=== PATIENT | female | born 1950 | race African-American/Black ===

== ENCOUNTER 2016-10-06 16:19 | Inpatient (IN) | payer MEDICARE, OTHER ==
[~2016-10-06] VITALS: Ht 170.2 cm; Wt 77.7 kg
[~2016-10-06 16:19] MED LIST: ADVAIR 250-501 EACH IH; ALBUTEROL SULF8.5 GM INH; ALBUTEROL2.5 MG/0.5 IH; SPIRIVA INHALE1 PUFF INH; VICODIN ES 7.51 EACH PO; VICODIN1 TAB PO
--- NOTE | 2016-10-06 16:22 | Emergency Room Report ---
History of Present Illness General Source: Patient, EMS Present Illness HPI Patient is a 66-year-old female who presented after increased difficulty breathing. Patient had gradual onset of symptoms over the past half hour. Patient prior history of asthma. Patient been taking her inhalers. Patient was given breathing treatment by EMS. History is limited by patient's acuity and severe shortness of breath. She denies medication allergies. Allergies: Coded Allergies: No Known Allergies (Unverified , 03/01/12) Patient History Past Medical History: asthma Reviewed Nursing Documentation: PMH: Agreed, PSxH: Agreed Review of Systems All Other Systems: limited - by acuity Physical Exam Sp02 EP Interpretation: reviewed, normal General Appearance: normal inspection, alert, severe distress, obese Head: atraumatic ENT: normal ENT inspection, hearing grossly normal, normal voice Neck: normal inspection, full range of motion, supple, no bony tend Respiratory: normal inspection, no respiratory distress, no retraction, respiratory distress, accessory muscle use, wheezing Cardiovascular #1: regular rate, rhythm, no edema Gastrointestinal: normal inspection, normal bowel sounds, non tender, soft, no guarding, no hernia Genitourinary: no CVA tenderness Musculoskeletal: normal inspection, back normal, normal range of motion Neurologic: normal inspection, alert, oriented x3, responsive, elementary librarian III-XII nml as tested, speech normal Psychiatric: normal inspection, judgement/insight normal, mood/affect normal Skin: no rash Medical Decision Making Diagnostic Impression: Primary Impression: COPD exacerbation ER Course Patient presented for shortness of breath.Differential included but was not limited to anemia, pneumonia, pneumothorax, myocardial infarction, pericardial effusion, congestive heart failure, acidosis. Because of complexity of patient' s case laboratory testing and imaging studies were ordered. EKG interpreted by me showed sinus tachycardia with a rate of [address] or T wave changes. Chest x-ray one view interpreted by me showed hyperinflation with normal cardiac size with no lung infiltrate. There is no effusions noted. The patient was initially started on BiPAP or severe difficulty breathing. She subsequently had some improvement in respiratory symptoms and was able to be placed on only supplemental oxygen. Patient was discussed with Dr. ng for inpatient management Labs Test 10/06/16 17:45 White Blood Count 9.5 K/UL (4.8-10.8) Red Blood Count 4.36 M/UL (4.20-5.40) Hemoglobin 11.4 G/DL (12.0-16.0) Hematocrit 35.4 % (37.0-47.0) Mean Corpuscular Volume 81 FL (80-99) Mean Corpuscular Hemoglobin 26.1 PG (27.0-31.0) Mean Corpuscular Hemoglobin Concent 32.1 G/DL (32.0-36.0) Red Cell Distribution Width 17.3 % (11.6-14.8) Platelet Count 200 K/UL (150-450) Mean Platelet Volume 8.1 FL (6.5-10.1) Neutrophils (%) (Auto) % (45.0-75.0) Lymphocytes (%) (Auto) % (20.0-45.0) Monocytes (%) (Auto) % (1.0-10.0) Eosinophils (%) (Auto) % (0.0-3.0) Basophils (%) (Auto) % (0.0-2.0) Prothrombin Time 10.3 SEC (9.30-11.50) Prothromb Time International Ratio 1.0 (0.9-1.1) Activated Partial Thromboplast Time 24 SEC (23-33) Chest X-Ray Diagnostic Results EP Interpretation: Yes Findings: no consolidation, no effusion, no pneumothorax, no acute cardiopulmonary disease Number of Views: 1 Status: unchanged Disposition: ADMITTED INPATIENT Condition: Landy JlRocco October 06, 2016 16:22
[2016-10-06] MEDS ORDERED: MELOXICAM15 MG PO (16:30)
[2016-10-06] MEDS ORDERED: VENTOLIN HFA18 GM INH (16:30)
[2016-10-06] MEDS ORDERED: PREDNISONE10 M2 PO (16:30)
[2016-10-06] MEDS ORDERED: SOMA350 MG PO (16:30)
[2016-10-06] MEDS ORDERED: LISINOPRIL20 MG ORAL (16:30)
[2016-10-06] MEDS ORDERED: AMBIEN10 M1 ORAL (16:30)
[2016-10-06] MEDS ORDERED: COMBIVENT RESPIM4 GM IH (16:30)
[2016-10-06] MEDS ORDERED: ASPIR 8181 MG ORAL (16:30)
[2016-10-06] MEDS ORDERED: CHLORTHALIDONE25 MG ORAL (16:30)
[2016-10-06] MEDS ORDERED: FUROSEMIDE20 M1 ORAL (16:30)
[2016-10-06 16:41] VITALS: BP 156/97
[2016-10-06] MEDS ORDERED: Solu-MEDROL 125mg Inj IVP ONE (16:45)
[2016-10-06] MEDS ORDERED: Albuterol ud Inhalation HHN ONE (18:00)
[2016-10-06 18:23] LABS: PROTHROMBIN TIME 10.3 SEC (9.30-11.50)
[2016-10-06 18:24] LABS: MEAN CORPUSCULAR HEMOGLOBIN 26.1 PG (27.0-31.0); MEAN CORPUSCULAR HGB CONC 32.1 G/DL (32.0-36.0); MEAN CORPUSCULAR VOLUME 81 FL (80-99); MEAN PLATELET VOLUME 8.1 FL (6.5-10.1); PLATELET COUNT 200 K/UL (150-450); RED BLOOD COUNT 4.36 M/UL (4.20-5.40); RED CELL DISTRIBUTION WIDTH 17.3 % (11.6-14.8); WHITE BLOOD COUNT 9.5 K/UL (4.8-10.8)
[2016-10-06 18:36] LABS: TROPONIN I < 0.30 ng/mL (<=0.30)
[2016-10-06 18:40] LABS: ALANINE AMINOTRANSFERASE 15 U/L (3-33); ALBUMIN/GLOBULIN RATIO 1.1 (1.0-2.7); ANION GAP 13 (5-15); ASPARTATE AMINO TRANSFERASE 20 U/L (5-40); CALCIUM 8.8 mg/dL (8.6-10.2); CARBON DIOXIDE 28 mEQ/L (20-30); CHLORIDE 102 mEQ/L (98-107); CREATININE 0.8 mg/dL (0.5-0.9); GLOMERULAR FILTRATION RATE > 60 mL/min (>60); HEMOLYSIS 15; POTASSIUM 3.9 mEQ/L (3.4-4.9); SODIUM 143 mEQ/L (135-145); TOTAL PROTEIN 6.4 g/dL (6.6-8.7)
[2016-10-06 18:41] LABS: REFLEX LACTIC ACID YES OR NO YES
[2016-10-06 18:45] LABS: ANISOCYTOSIS 1+; BAND NEUTROPHILS % (MANUAL) 3 % (0-8); BASOPHILS % (MANUAL) 0 % (0-2); EOSINOPHILS % (MANUAL) 0 % (0-3); HYPOCHROMASIA 1+; LYMPHOCYTES % (MANUAL) 7 % (20-45); NEUTROPHILS % (MANUAL) 86 % (45-75); PLATELET ESTIMATE ADEQUATE; PLATELET MORPHOLOGY NORMAL; TOTAL CELLS COUNTED 100
[2016-10-06 18:51] LABS: CKMB 2.3 ng/mL (< 3.8)
[2016-10-06 19:15] VITALS: BP 149/98
[2016-10-06 20:00] VITALS: BP 157/98
[2016-10-06] MEDS ORDERED: LORazepam Inj 2mg/ml 1ml IV PRN (20:30)
[2016-10-06] MEDS ORDERED: Ketorolac 30mg Inj IV PRN (20:30)
[2016-10-06] MEDS ORDERED: Promethazine/Codeine 5ml UD ORAL PRN (20:30)
[2016-10-06] MEDS ORDERED: Nitroglycerin Subl 0.4mg tab (Bottle Of 25) SL PRN (20:30)
[2016-10-06] MEDS: DuoNeb 0.5-3(2.5)mg/3ml neb HHN PRN (21:32)
[2016-10-06] MEDS: Theophylline ER 100mg ORAL SCH (21:44)
[2016-10-06] MEDS: Heparin 5000 units/ml inj SUBQ SCH (21:46)
[2016-10-06] MEDS: Morphine Sulfate 2mg/ml Inj IVP PRN (21:47)
[2016-10-06] MEDS ORDERED: Piperacillin/Tazobactam 2.25 GM in D5W 55 ML IV SCH (22:00)
[2016-10-06] MEDS: Zoysn 3.37gm in D5W 110ml IVPB SCH (23:18)
[2016-10-06] MEDS: Solu-MEDROL 125mg Inj IV SCH (23:18)
[2016-10-06 23:46] VITALS: BP 138/89
[2016-10-07] MEDS: Morphine Sulfate 2mg/ml Inj IVP PRN ×5 (02:58→18:30)
[2016-10-07 03:51] VITALS: BP 146/99
[2016-10-07] MEDS: Solu-MEDROL 125mg Inj IV SCH ×3 (05:56→18:00)
[2016-10-07] MEDS: Zoysn 3.37gm in D5W 110ml IVPB SCH ×2 (05:56→14:28)
[2016-10-07] MEDS ORDERED: Miralax 17gm pkt ORAL PRN (07:45)
[2016-10-07 08:52] VITALS: BP 148/98
[2016-10-07] MEDS: Theophylline ER 100mg ORAL SCH ×2 (09:11→22:02)
[2016-10-07] MEDS: Heparin 5000 units/ml inj SUBQ SCH ×2 (09:14→22:02)
[2016-10-07] MEDS: DuoNeb 0.5-3(2.5)mg/3ml neb HHN PRN ×3 (09:59→23:48)
--- NOTE | 2016-10-07 11:04 | History and Physical ---
History of Present Illness General Date patient seen: October 07, 2016 Reason for Hospitalization: Asthma Present Illness HPI 66-year-old female who presented to [facility] ER with CC of increased difficulty breathing. Patient had gradual onset of symptoms over the past half hour. Patient prior history of asthma. Patient been taking her inhalers. Pt is admitted to telemetry for tachycardia and acute respiratory failure. Allergies: Coded Allergies: No Known Allergies (Unverified , 03/01/12) Medication History Scheduled Acetaminophen/Hydrocodone (Vicodin), 1-2 TAB PO PRN, (Reported) Albuterol Sulfate (Albuterol Sulfate), 2.5 MG IH PRN, (Reported) Albuterol Sulfate (Ventolin Hfa), 1 PUFF INH EVERY 6 HOURS, (Reported) Albuterol Sulfate* (Albuterol Sulfate Mdi*), 2 PUFF INH Q6H, (Reported) Aspirin* (Aspir 81*), 81 MG ORAL DAILY, (Reported) Chlorthalidone* (Chlorthalidone*), 25 MG ORAL DAILY, (Reported) Fluticasone/Salmeterol (Advair 250-50 Diskus), 1 EACH IH BID, (Reported) Furosemide* (Lasix*), 20 MG ORAL DAILY, (Reported) Hydrocodone/Acetaminophen 7.5-750 (Vicodin Es 7.5-750), 1 TAB PO Q8H, (Reported) Lisinopril (Lisinopril*), 20 MG ORAL DAILY, (Reported) Meloxicam* (Meloxicam*), 15 MG PO DAILY, (Reported) Tiotropium (Spiriva Inhaler), 1 PUFF INH DAILY, (Reported) Scheduled PRN Carisoprodol* (Soma*), 350 MG PO DAILY PRN for For Pain, (Reported) Zolpidem Tartrate* (Ambien*), 10 MG ORAL HS PRN for Insomnia, (Reported) Miscellaneous Medications Ipratropium/Albuterol Sulfate (Combivent Respimat Inhal [place]), 4 GM IH, ( Reported) Prednisone (Prednisone), 20 MG PO, (Reported) Patient History Healthcare decision maker Resuscitation status Full Code Advanced Directive on File No Past Medical/Surgical History Past Medical/Surgical History: (1) History of asthma Review of Systems All Other Systems: negative except mentioned in HPI Physical Exam General Appearance: morbidly obese Lines, tubes and drains: peripheral HEENT: normocephalic, atraumatic Neck: non-tender, normal alignment, supple Respiratory/Chest: chest wall non-tender, lungs clear Breasts: no masses Cardiovascular/Chest: normal peripheral pulses Abdomen: normal bowel sounds Genitourinary/Rectal: normal genital exam Extremities: normal range of motion Skin Exam: normal pigmentation Neurologic: sanitarian inspector II-XII grossly normal Last 24 Hour Vital Signs Date Time Temp Pulse Resp B/P Pulse Ox O2 Delivery O2 Flow Rate FiO2 10/07/16 10:08 105 20 98 Nasal Cannula 3.0 32 10/07/16 09:55 99 20 97 Nasal Cannula 3.0 32 10/07/16 09:35 85 10/07/16 08:52 97.0 99 22 148/98 98 Nasal Cannula 3.0 10/07/16 07:41 Nasal Cannula 3.0 32 10/07/16 07:40 98 Nasal Cannula 3.0 32 10/07/16 04:00 92 10/07/16 03:51 98.3 94 18 146/99 98 Nasal Cannula 3.0 10/07/16 00:00 95 10/06/16 23:46 97.7 106 19 138/89 97 Nasal Cannula 3.0 10/06/16 21:42 103 20 98 Nasal Cannula 3.0 32 10/06/16 21:32 101 20 97 Nasal Cannula 3.0 32 10/06/16 20:00 104 10/06/16 20:00 97.5 101 22 157/98 96 Nasal Cannula 4.0 10/06/16 19:45 118 38 149/98 93 Nasal Cannula 6.0 32 10/06/16 19:15 118 38 149/98 93 Nasal Cannula 6.0 10/06/16 18:30 97 Nasal Cannula 3.0 32 10/06/16 18:30 Nasal Cannula 3.0 32 10/06/16 18:18 109 23 98 Nasal Cannula 3.0 32 10/06/16 18:08 109 22 Bi-pap 50 10/06/16 18:08 109 22 100 Bi-pap 50 10/06/16 16:47 115 18 100 Facial 50 10/06/16 16:43 50 10/06/16 16:41 136 28 Bi-pap 15.0 100 10/06/16 16:41 117 25 156/97 100 Bi-pap 10/06/16 16:16 136 28 161/112 99 T-piece 15.0 Intake and Output 10/06/16 10/07/16 19:00 07:00 Intake Total 110.0 ml Balance 110.0 ml IV Total 110.0 ml # Voids 1 4 Laboratory Tests Test 10/06/16 17:45 10/06/16 19:25 White Blood Count 9.5 K/UL (4.8-10.8) Red Blood Count 4.36 M/UL (4.20-5.40) Hemoglobin 11.4 G/DL (12.0-16.0) L Hematocrit 35.4 % (37.0-47.0) L Mean Corpuscular Volume 81 FL (80-99) Mean Corpuscular Hemoglobin 26.1 PG (27.0-31.0) L Mean Corpuscular Hemoglobin Concent 32.1 G/DL (32.0-36.0) Red Cell Distribution Width 17.3 % (11.6-14.8) H Platelet Count 200 K/UL (150-450) Mean Platelet Volume 8.1 FL (6.5-10.1) Neutrophils (%) (Auto) % (45.0-75.0) Lymphocytes (%) (Auto) % (20.0-45.0) Monocytes (%) (Auto) % (1.0-10.0) Eosinophils (%) (Auto) % (0.0-3.0) Basophils (%) (Auto) % (0.0-2.0) Differential Total Cells Counted 100 Neutrophils % (Manual) 86 % (45-75) H Lymphocytes % (Manual) 7 % (20-45) L Monocytes % (Manual) 4 % (1-10) Eosinophils % (Manual) 0 % (0-3) Basophils % (Manual) 0 % (0-2) Band Neutrophils 3 % (0-8) Platelet Estimate Adequate Platelet Morphology Normal Hypochromasia 1+ Anisocytosis 1+ Prothrombin Time 10.3 SEC (9.30-11.50) Prothromb Time International Ratio 1.0 (0.9-1.1) Activated Partial Thromboplast Time 24 SEC (23-33) Sodium Level 143 mEQ/L (135-145) Potassium Level 3.9 mEQ/L (3.4-4.9) Chloride Level 102 mEQ/L (98-107) Carbon Dioxide Level 28 mEQ/L (20-30) Anion Gap 13 (5-15) Blood Urea Nitrogen 11 mg/dL (7-23) Creatinine 0.8 mg/dL (0.5-0.9) Estimat Glomerular Filtration Rate > 60 mL/min (>60) Glucose Level 161 mg/dL (74-106) H Lactic Acid Level 2.10 mmol/L (0.66-2.22) 2.50 mmol/L (0.66-2.22) H Calcium Level 8.8 mg/dL (8.6-10.2) Total Bilirubin 0.3 mg/dL (0.0-1.2) Aspartate Amino Transf (AST/SGOT) 20 U/L (5-40) Alanine Aminotransferase (ALT/SGPT) 15 U/L (3-33) Alkaline Phosphatase 48 U/L (35-104) Total Creatine Kinase 113 U/L (26-140) Creatine Kinase MB 2.3 ng/mL (< 3.8) Creatine Kinase MB Relative Index 2.0 Troponin I < 0.30 ng/mL (<=0.30) Pro-B-Type Natriuretic Peptide 226 pg/mL (0-125) H Total Protein 6.4 g/dL (6.6-8.7) L Albumin 3.4 g/dL (3.5-5.2) L Globulin 3.0 g/dL Albumin/Globulin Ratio 1.1 (1.0-2.7) Microbiology Date/Time Source Procedure Growth Status 10/06/16 19:45 Nasal Nares Influenza Types A,B Antigen (GIRISH) - Final Complete Height (Feet): 5 Height (Inches): 7.00 Weight (Pounds): 236 Medications Current Medications Medications (Trade) Dose Ordered Sig/Myke Route PRN Reason Start Time Stop Time Status Last Admin Dose Admin Albuterol/ Ipratropium (DuoNeb 0.5-3(2.5)mg/3ml) 3 ml EVERY 4 HOURS PRN HHN dyspnea 10/06/16 20:30 10/11/16 20:29 10/07/16 09:59 Carisoprodol (Soma) 350 mg DAILY PRN ORAL For Pain 10/06/16 20:30 11/05/16 20:29 Chlorthalidone (Chlorthalidone) 25 mg DAILY ORAL 10/07/16 09:00 11/06/16 08:59 10/07/16 09:15 Dextrose STAT PRN IV Hypoglycemia 10/06/16 20:30 11/05/16 20:29 Furosemide (Lasix) 20 mg DAILY ORAL 10/07/16 09:00 11/06/16 08:59 10/07/16 09:08 Heparin Sodium (Porcine) (Heparin 5000 units/ml) 5,000 units EVERY 12 HOURS SUBQ 10/06/16 21:00 11/05/16 20:59 10/07/16 09:14 Ketorolac Tromethamine (Toradol 30mg) 30 mg EVERY 8 HOURS PRN IV moderate pain 4-6 10/06/16 20:30 10/11/16 20:29 Lorazepam (Ativan 2mg/ml 1ml) 0.5 mg Q4H PRN IV For Anxiety 10/06/16 20:30 10/13/16 20:29 Methylprednisolone Sodium Succinate (Solu-MEDROL) 60 mg EVERY 6 HOURS IV 10/07/16 00:00 11/06/16 00:00 10/07/16 05:56 Morphine Sulfate (Morphine Sulfate) 2 mg EVERY 4 HOURS PRN IVP severe pain 7-10 10/06/16 20:30 10/13/16 20:29 10/07/16 09:22 Nitroglycerin (Ntg) 0.4 mg Q5M X 3 DOSES PRN SL Prn Chest Pain 10/06/16 20:30 11/05/16 20:29 Ondansetron HCl (Zofran) 4 mg Q6H PRN IVP Nausea & Vomiting 10/06/16 20:30 11/05/16 20:29 Piperacillin Sod/ Tazobactam Sod/ Dextrose (Zosyn/D5W) 110 ml @ 27.5 mls/hr EVERY 8 HOURS IVPB 10/06/16 22:00 10/11/16 21:59 10/07/16 05:56 Polyethylene Glycol (Miralax) 17 gm DAILYPRN PRN ORAL Constipation 10/07/16 07:45 11/06/16 07:44 10/07/16 09:24 Promethazine HCl/ Codeine (Phenergan with Codeine) 5 ml EVERY 6 HOURS PRN ORAL cough 10/06/16 20:30 11/05/16 20:29 Temazepam (Restoril) 15 mg HSPRN PRN ORAL Insomnia 10/06/16 20:30 10/13/16 20:29 10/07/16 00:07 Theophylline (Dash-Dur) 100 mg EVERY 12 HOURS ORAL 10/06/16 21:00 11/05/16 20:59 10/07/16 09:11 Assessment/Plan Problem List: (1) COPD exacerbation ICD Codes: J44.1 - Chronic obstructive pulmonary disease with (acute) exacerbation SNOMED: 786921591 (2) History of asthma ICD Codes: Z87.09 - Personal history of other diseases of the respiratory system SNOMED: 966581309 Assessment/Plan IV steroids IV antibiotics check cultures respiratory treatment cardio consult if tachycardia WALT RUSSELL October 07, 2016 11:04
[2016-10-07 11:34] VITALS: BP 149/92
--- NOTE | 2016-10-07 11:46 | Diagnostic Imaging Report ---
Indication: Chest Pain Comparison: 06/07/14 A single view chest radiograph was obtained. Findings: Hilar vessels are somewhat prominent but there is no overt CHF. Cardiac silhouette is borderline enlarged. Bones are osteopenic. Aorta is mildly ectatic. Impression: No acute disease
[2016-10-07 15:36] VITALS: BP 138/97
[2016-10-07 20:00] VITALS: BP 155/99
[2016-10-07] MEDS: Norco 10mg/325mg tab ORAL PRN (22:04)
[2016-10-07] MEDS: Piperacillin/Tazobactam 3.375 GM in NS 110 ML IVPB SCH (22:05)
[2016-10-08] VITALS (7 sets, daily range): BP systolic 124–157; BP diastolic 73–102
[2016-10-08] MEDS: Morphine Sulfate 2mg/ml Inj IVP PRN (00:08)
[2016-10-08] MEDS: Solu-MEDROL 125mg Inj IV SCH ×5 (00:09→23:58)
[2016-10-08] MEDS: Norco 10mg/325mg tab ORAL PRN ×4 (04:40→21:45)
[2016-10-08] MEDS: Piperacillin/Tazobactam 3.375 GM in NS 110 ML IVPB SCH ×3 (05:55→21:44)
[2016-10-08] MEDS: Theophylline ER 100mg ORAL SCH ×2 (08:36→21:45)
[2016-10-08] MEDS: Heparin 5000 units/ml inj SUBQ SCH ×2 (08:37→21:47)
--- NOTE | 2016-10-08 11:58 | Cardiology Report ---
APPROVED REPORT EKG Measurement Heart [id number] Sinus tachycardia Left anterior fascicular block Cannot rule out Anterior infarct, age undetermined Abnormal ECG
--- NOTE | 2016-10-08 14:08 | Pulmonology Progress Note ---
Assessment/Plan Problems: (1) COPD exacerbation (2) History of asthma Assessment/Plan continue same dose of steroids still short of breath echo pending sputum pending Subjective ROS Limited/Unobtainable: No Constitutional: Reports: no symptoms HEENT: Repors: no symptoms Respiratory: Reports: no symptoms Allergies: Coded Allergies: No Known Allergies (Unverified , 03/01/12) Objective Last 24 Hour Vital Signs Date Time Temp Pulse Resp B/P Pulse Ox O2 Delivery O2 Flow Rate FiO2 10/08/16 12:00 97.4 103 18 148/89 Nasal Cannula 2.0 98 10/08/16 11:40 103 10/08/16 10:50 97.2 10/08/16 08:00 97.2 112 20 124/86 Nasal Cannula 2.0 96 10/08/16 07:51 105 10/08/16 06:50 100 Nasal Cannula 2.0 28 10/08/16 06:50 Nasal Cannula 2.0 28 10/08/16 04:00 119 10/08/16 04:00 97.4 103 18 157/95 100 Nasal Cannula 2.0 10/08/16 00:00 109 10/08/16 00:00 97.7 93 18 139/95 99 Nasal Cannula 2.0 10/07/16 23:49 98 20 99 Nasal Cannula 2.0 28 10/07/16 23:48 94 20 96 Nasal Cannula 2.0 28 10/07/16 20:00 106 10/07/16 20:00 97.2 59 20 155/99 100 Room Air 10/07/16 19:22 Nasal Cannula 2.0 28 10/07/16 19:21 100 20 99 Nasal Cannula 2.0 28 10/07/16 19:21 96 Nasal Cannula 2.0 28 10/07/16 19:20 96 20 98 Nasal Cannula 2.0 28 10/07/16 15:36 97.3 98 22 138/97 96 Nasal Cannula 3.0 Intake and Output 10/07/16 10/08/16 19:00 07:00 Intake Total 980 ml 137.5 ml Output Total 600 ml 1600 ml Balance 380 ml -1462.5 ml Intake Oral 980 ml IV Total 137.5 ml Output Urine Total 600 ml 1600 ml # Voids 5 # Bowel Movements 3 General Appearance: WD/WN HEENT: atraumatic, anicteric Respiratory/Chest: lungs clear, normal breath sounds Cardiovascular: regular rhythm Abdomen: normal bowel sounds, soft, non tender Neurologic/Psychiatric: neon sign servicer II-XII grossly normal, no motor/sensory deficits Lymphatic: no neck adenopathy Microbiology Date/Time Source Procedure Growth Status 10/06/16 17:55 Blood Blood Culture - Preliminary NO GROWTH AFTER 24 HOURS Resulted 10/06/16 17:45 Blood Blood Culture - Preliminary NO GROWTH AFTER 24 HOURS Resulted 10/07/16 05:00 Sputum Gram Stain - Final Resulted 10/07/16 05:00 Sputum Sputum Culture - Preliminary NORMAL UPPER RESPIRATORY CANDELARIA AT 24 ... Resulted 10/06/16 19:45 Nasal Nares Influenza Types A,B Antigen (GIRISH) - Final Complete Current Medications Medications (Trade) Dose Ordered Sig/Myke Route PRN Reason Start Time Stop Time Status Last Admin Dose Admin Acetaminophen/ Hydrocodone Bitart ([place] 10/325) 1 ea Q4H PRN ORAL For Pain 10/07/16 21:30 10/14/16 21:29 10/08/16 10:09 Albuterol/ Ipratropium (DuoNeb 0.5-3(2.5)mg/3ml) 3 ml EVERY 4 HOURS PRN HHN dyspnea 10/06/16 20:30 10/11/16 20:29 10/07/16 23:48 Carisoprodol (Soma) 350 mg DAILY PRN ORAL For Pain 10/06/16 20:30 11/05/16 20:29 Chlorthalidone (Chlorthalidone) 25 mg DAILY ORAL 10/07/16 09:00 11/06/16 08:59 10/07/16 09:15 Dextrose (Dextrose 50%) STAT PRN IV Hypoglycemia 10/06/16 20:30 11/05/16 20:29 Furosemide (Lasix) 20 mg DAILY ORAL 10/07/16 09:00 11/06/16 08:59 10/08/16 08:36 Heparin Sodium (Porcine) (Heparin 5000 units/ml) 5,000 units EVERY 12 HOURS SUBQ 10/06/16 21:00 11/05/16 20:59 10/08/16 08:37 Lorazepam (Ativan 2mg/ml 1ml) 0.5 mg Q4H PRN IV For Anxiety 10/06/16 20:30 10/13/16 20:29 Methylprednisolone Sodium Succinate (Solu-MEDROL) 60 mg EVERY 6 HOURS IV 10/07/16 00:00 11/06/16 00:00 10/08/16 11:36 Morphine Sulfate (Morphine Sulfate) 2 mg EVERY 4 HOURS PRN IVP severe pain 7-10 10/06/16 20:30 10/13/16 20:29 10/08/16 00:08 Nitroglycerin (Ntg) 0.4 mg Q5M X 3 DOSES PRN SL Prn Chest Pain 10/06/16 20:30 11/05/16 20:29 Ondansetron HCl (Zofran) 4 mg Q6H PRN IVP Nausea & Vomiting 10/06/16 20:30 11/05/16 20:29 Piperacillin Sod/ Tazobactam Sod/ Sodium Chloride (Zosyn/Sodium Chloride) 110 ml @ 27.5 mls/hr EVERY 8 HOURS IVPB 10/07/16 22:00 10/14/16 21:59 10/08/16 13:52 Polyethylene Glycol 17 gm 17 gm DAILYPRN PRN ORAL Constipation 10/07/16 07:45 11/06/16 07:44 10/07/16 09:24 Promethazine HCl/ Codeine (Phenergan with Codeine) 5 ml EVERY 6 HOURS PRN ORAL cough 10/06/16 20:30 11/05/16 20:29 Temazepam (Restoril) 15 mg HSPRN PRN ORAL Insomnia 10/06/16 20:30 10/13/16 20:29 10/07/16 00:07 Theophylline (Dash-Dur) 100 mg EVERY 12 HOURS ORAL 10/06/16 21:00 11/05/16 20:59 10/08/16 08:36 WALT RUSSELL October 08, 2016 14:08
[2016-10-08] MEDS: DuoNeb 0.5-3(2.5)mg/3ml neb HHN PRN (15:40)
--- NOTE | 2016-10-08 18:54 | Cardiology Report ---
APPROVED REPORT EXAM: Two-dimensional and M-mode echocardiogram with Doppler and color Doppler. INDICATION LV function M-Mode DIMENSIONS IVSd1.2 (0.7-1.1cm)Left Atrium (MM)3.9 (1.6-4.0cm) LVDd4.4 (3.5-5.6cm)Aortic Root3.3 (2.0-3.7cm) PWd0.7 (0.7-1.1cm)Aortic Cusp Exc.1.9 (1.5-2.0cm) LVDs2.7 (2.5-4.0cm) PWs1.2 cm Normal left ventricular chamber size, systolic function and wall motion to extent visualized. Left ventricular ejection fraction grossly estimated to be 65 %. Study quality precludes accurate assessment of regional wall motion. Mild left ventricular hypertrophy by 2-D.. Anterior Echo-free space, may be due to pericardial fat or effusion. Left and right chamber sizes are within normal limits. Right ventricular mild enlargement. Focal aortic valve sclerosis with adequate cusp excursion. Thickened mitral valve leaflets with normal excursion. Mitral annulus and aortic root calcification. Pulmonic valve not well visualized. Normal tricuspid valve structure. IVC dilated at 2.6 cm with slight physiologic collapse suggestive of increased RA pressure. A color flow and spectral Doppler study was performed and revealed: No aortic regurgitation. Trace mitral regurgitation. Mitral diastolic velocities suggest reduced left ventricular relaxation c/w mild LV diastolic dysfunction (Grade I ). Moderate tricuspid regurgitation. Tricuspid systolic velocities suggests peak right ventricular systolic pressure of 52 mmHg, consistent with moderate pulmonary hypertension. No pulmonic regurgitation present.
[2016-10-09] VITALS: BP 127/96
[2016-10-09] MEDS: Morphine Sulfate 2mg/ml Inj IVP PRN ×2 (00:58→08:24)
[2016-10-09 04:10] VITALS: BP 130/88
[2016-10-09] MEDS: Piperacillin/Tazobactam 3.375 GM in NS 110 ML IVPB SCH ×2 (05:16→14:00)
[2016-10-09] MEDS: Solu-MEDROL 125mg Inj IV SCH ×2 (05:16→12:06)
[2016-10-09 08:00] VITALS: BP 132/75
[2016-10-09 08:03] LABS: MEAN CORPUSCULAR HEMOGLOBIN 24.1 PG (27.0-31.0); MEAN CORPUSCULAR HGB CONC 29.8 G/DL (32.0-36.0); MEAN CORPUSCULAR VOLUME 81 FL (80-99); MEAN PLATELET VOLUME 8.1 FL (6.5-10.1); PLATELET COUNT 224 K/UL (150-450); RED BLOOD COUNT 4.46 M/UL (4.20-5.40); RED CELL DISTRIBUTION WIDTH 17.6 % (11.6-14.8); WHITE BLOOD COUNT 15.4 K/UL (4.8-10.8)
[2016-10-09 08:23] LABS: ALANINE AMINOTRANSFERASE 15 U/L (3-33); ALBUMIN/GLOBULIN RATIO 1.1 (1.0-2.7); ANION GAP 9 (5-15); ASPARTATE AMINO TRANSFERASE 15 U/L (5-40); CARBON DIOXIDE 34 mEQ/L (20-30); CHLORIDE 97 mEQ/L (98-107); CREATININE 0.9 mg/dL (0.5-0.9); GLOMERULAR FILTRATION RATE > 60 mL/min (>60); HEMOLYSIS 6; POTASSIUM 4.8 mEQ/L (3.4-4.9); SODIUM 140 mEQ/L (135-145); TOTAL PROTEIN 6.3 g/dL (6.6-8.7)
[2016-10-09] MEDS: Theophylline ER 100mg ORAL SCH ×2 (08:25→19:58)
[2016-10-09] MEDS: Heparin 5000 units/ml inj SUBQ SCH ×2 (08:34→21:00)
[2016-10-09 10:24] LABS: ANISOCYTOSIS 1+; BAND NEUTROPHILS % (MANUAL) 0 % (0-8); BASOPHILS % (MANUAL) 0 % (0-2); EOSINOPHILS % (MANUAL) 0 % (0-3); HYPOCHROMASIA 1+; LYMPHOCYTES % (MANUAL) 4 % (20-45); NEUTROPHILS % (MANUAL) 92 % (45-75); PLATELET ESTIMATE ADEQUATE; PLATELET MORPHOLOGY NORMAL; TOTAL CELLS COUNTED 100
[2016-10-09 12:00] VITALS: BP 136/74
--- NOTE | 2016-10-09 12:08 | Diagnostic Imaging Report ---
Indication: Dyspnea Comparison: 10/06/16 A single view chest radiograph was obtained. Findings: Pulmonary hilum appears prominent. Cardiac silhouette is borderline enlarged. No definite infiltrate or evidence of interstitial edema. Bones are osteopenic. Impression: No acute disease
[2016-10-09] MEDS: DuoNeb 0.5-3(2.5)mg/3ml neb HHN PRN (13:34)
[2016-10-09] MEDS: Norco 10mg/325mg tab ORAL PRN (14:18)
[2016-10-09] MEDS ORDERED: Ketorolac 30mg Inj IV PRN (14:30)
[2016-10-09 16:00] VITALS: BP 126/86
[2016-10-09] MEDS ORDERED: Piperacillin/Tazobactam 3.375 GM in D5W 110 ML IVPB SCH (16:00)
[2016-10-09] MEDS ORDERED: Nitroglycerin Subl 0.4mg tab (Bottle Of 25) SL PRN (19:00)
[2016-10-09] MEDS ORDERED: LORazepam Inj 2mg/ml 1ml IV PRN (19:30)
[2016-10-09] MEDS ORDERED: Miralax 17gm pkt ORAL PRN (19:30)
[2016-10-09] MEDS ORDERED: Promethazine/Codeine 5ml UD ORAL PRN (19:30)
[2016-10-09 20:00] VITALS: BP 128/94
[2016-10-09] MEDS: Piperacillin/Tazobactam 3.375 GM in D5W 110 ML IVPB SCH (22:11)
--- NOTE | 2016-10-09 22:36 | Pulmonology Progress Note ---
Assessment/Plan Problems: (1) COPD exacerbation (2) History of asthma Assessment/Plan taper steroids still short of breath echo pending sputum pending methadone for dyspnea Subjective Interval Events: feeling better Allergies: Coded Allergies: KETOROLAC (Verified Allergy, Unknown, Hives, 10/09/16) Objective Last 24 Hour Vital Signs Date Time Temp Pulse Resp B/P Pulse Ox O2 Delivery O2 Flow Rate FiO2 10/09/16 20:00 97.3 100 20 128/94 96 Nasal Cannula 2.0 10/09/16 19:00 Nasal Cannula 2.0 28 10/09/16 19:00 97 Nasal Cannula 2.0 28 10/09/16 18:00 102 10/09/16 16:00 97.0 99 20 126/86 Nasal Cannula 2.0 98 10/09/16 13:42 108 22 100 Nasal Cannula 3.0 32 10/09/16 13:30 105 24 Nasal Cannula 2.0 98 10/09/16 12:00 102 10/09/16 12:00 97.4 101 20 136/74 Nasal Cannula 2.0 100 10/09/16 08:00 99 10/09/16 08:00 97.7 98 19 132/75 Nasal Cannula 2.0 98 10/09/16 07:49 99 Nasal Cannula 2.0 28 10/09/16 07:49 Nasal Cannula 2.0 28 10/09/16 04:10 97.0 100 20 130/88 96 Nasal Cannula 4.0 10/09/16 04:00 98 10/09/16 00:00 96.8 102 20 127/96 97 Nasal Cannula 4.0 10/09/16 00:00 92 10/08/16 22:44 97.5 Intake and Output 10/08/16 10/09/16 19:00 07:00 Intake Total 860 ml 148.5 ml Output Total 1725 ml Balance -865 ml 148.5 ml Intake Oral 860 ml IV Total 148.5 ml Output Urine Total 1725 ml # Voids 4 # Bowel Movements 1 General Appearance: WD/WN HEENT: normocephalic Respiratory/Chest: chest wall non-tender, lungs clear Abdomen: normal bowel sounds Extremities: no cyanosis Microbiology Date/Time Source Procedure Growth Status 10/07/16 05:00 Sputum Gram Stain - Final Complete 10/07/16 05:00 Sputum Sputum Culture - Final NORMAL UPPER RESPIRATORY CANDELARIA PRESENT Complete Laboratory Tests 10/09/16 07:00: White Blood Count 15.4H, Red Blood Count 4.46, Hemoglobin 10.8L, Hematocrit 36.1L, Mean Corpuscular Volume 81, Mean Corpuscular Hemoglobin 24.1L, Mean Corpuscular Hemoglobin Concent 29.8L, Red Cell Distribution Width 17.6H, Platelet Count 224, Mean Platelet Volume 8.1, Neutrophils (%) (Auto) , Lymphocytes (%) (Auto) , Monocytes (%) (Auto) , Eosinophils (%) (Auto) , Basophils (%) (Auto) , Differential Total Cells Counted 100, Neutrophils % ( Manual) 92H, Lymphocytes % (Manual) 4L, Monocytes % (Manual) 4, Eosinophils % ( Manual) 0, Basophils % (Manual) 0, Band Neutrophils 0, Platelet Estimate Adequate, Platelet Morphology Normal, Hypochromasia 1+, Anisocytosis 1+, Sodium Level 140, Potassium Level 4.8, Chloride Level 97L, Carbon Dioxide Level 34H, Anion Gap 9, Blood Urea Nitrogen 20, Creatinine 0.9, Estimat Glomerular Filtration Rate > 60, Glucose Level 161H, Calcium Level 9.0, Total Bilirubin 0.3 , Aspartate Amino Transf (AST/SGOT) 15, Alanine Aminotransferase (ALT/SGPT) 15, Alkaline Phosphatase 47, Pro-B-Type Natriuretic Peptide 77, Total Protein 6.3L, Albumin 3.3L, Globulin 3.0, Albumin/Globulin Ratio 1.1 10/09/16 17:15: Urine Opiates Screen PositiveH, Urine Barbiturates Screen Negative, Phencyclidine (PCP) Screen Negative, Urine Amphetamines Screen Negative, Urine Benzodiazepines Screen PositiveH, Urine Cocaine Screen Negative, Urine Marijuana (THC) Screen Negative Current Medications Medications (Trade) Dose Ordered Sig/Myke Route PRN Reason Start Time Stop Time Status Last Admin Dose Admin Albuterol/ Ipratropium (DuoNeb 0.5-3(2.5)mg/3ml) 3 ml Q4H PRN HHN dyspnea 10/09/16 21:00 10/14/16 20:59 Carisoprodol (Soma) 350 mg DAILYPRN PRN ORAL PAIN UNRELIEVED BY METHADONE 10/09/16 19:30 11/08/16 19:29 10/09/16 22:11 Chlorthalidone (Chlorthalidone) 25 mg DAILY ORAL 10/10/16 09:00 11/09/16 08:59 Dextrose (Dextrose 50%) STAT PRN IV Hypoglycemia 10/09/16 19:30 11/08/16 19:29 Furosemide (Lasix) 20 mg DAILY ORAL 10/10/16 09:00 11/09/16 08:59 Heparin Sodium (Porcine) (Heparin 5000 units/ml) 5,000 units EVERY 12 HOURS SUBQ 10/09/16 21:00 11/08/16 20:59 Lorazepam (Ativan 2mg/ml 1ml) 0.5 mg Q4H PRN IV For Anxiety 10/09/16 19:30 10/16/16 19:29 Methadone HCl (Methadone HCl) 5 mg Q8H PRN ORAL For Pain 10/09/16 19:30 10/16/16 19:29 10/09/16 19:58 Methylprednisolone Sodium Succinate (Solu-MEDROL) 60 mg DAILY IV 10/10/16 09:00 11/09/16 08:59 Nitroglycerin (Ntg) 0.4 mg Q5M X 3 DOSES PRN SL Prn Chest Pain 10/09/16 19:00 11/08/16 18:59 Ondansetron HCl (Zofran) 4 mg Q6H PRN IVP Nausea & Vomiting 10/09/16 19:30 11/08/16 19:29 Piperacillin Sod/ Tazobactam Sod/ Dextrose (Zosyn/D5W) 110 ml @ 27.5 mls/hr EVERY 8 HOURS IVPB 10/09/16 22:00 10/14/16 21:59 10/09/16 22:11 Polyethylene Glycol (Miralax) 17 gm DAILYPRN PRN ORAL Constipation 10/09/16 19:30 11/08/16 19:29 Promethazine HCl/ Codeine (Phenergan with Codeine) 5 ml Q6H PRN ORAL cough 10/09/16 19:30 11/08/16 19:29 Temazepam (Restoril) 15 mg HSPRN PRN ORAL Insomnia 10/09/16 19:30 10/16/16 19:29 Theophylline (Dash-Dur) 100 mg EVERY 12 HOURS ORAL 10/09/16 21:00 11/08/16 20:59 10/09/16 19:58 WALT RUSSELL 9, 2017 22:36
[2016-10-10] VITALS: BP 129/82
[2016-10-10 03:58] VITALS: BP 131/84
[2016-10-10] MEDS: Piperacillin/Tazobactam 3.375 GM in D5W 110 ML IVPB SCH ×3 (05:14→21:01)
[2016-10-10 08:42] VITALS: BP 134/76
[2016-10-10] MEDS: Theophylline ER 100mg ORAL SCH ×2 (08:45→21:01)
[2016-10-10] MEDS: Heparin 5000 units/ml inj SUBQ SCH ×2 (08:54→21:03)
[2016-10-10] MEDS ORDERED: Solu-MEDROL 125mg Inj IV SCH (09:00)
[2016-10-10] MEDS: DuoNeb 0.5-3(2.5)mg/3ml neb HHN PRN ×3 (09:07→21:54)
[2016-10-10] MEDS: Solu-MEDROL 125mg Inj IV SCH (11:15)
[2016-10-10 12:05] VITALS: BP 110/84
[2016-10-10 16:10] VITALS: BP 126/93
[2016-10-10 19:48] VITALS: BP 116/89
--- NOTE | 2016-10-10 22:56 | Pulmonology Progress Note ---
Assessment/Plan Problems: (1) COPD exacerbation (2) History of asthma Assessment/Plan taper steroids still short of breath echo pending sputum pending methadone for dyspnea dc lasix, cxr is negative, BNP normal now, echo results noted Subjective ROS Limited/Unobtainable: No Interval Events: less short of breath Allergies: Coded Allergies: KETOROLAC (Verified Allergy, Unknown, Hives, 10/09/16) Objective Last 24 Hour Vital Signs Date Time Temp Pulse Resp B/P Pulse Ox O2 Delivery O2 Flow Rate FiO2 10/10/16 21:56 107 18 98 Nasal Cannula 2.0 28 10/10/16 21:56 111 18 99 Nasal Cannula 2.0 28 10/10/16 21:56 28 10/10/16 19:48 97.7 106 18 116/89 95 Nasal Cannula 2.0 10/10/16 19:23 97 Nasal Cannula 2.0 10/10/16 19:23 Nasal Cannula 2.0 10/10/16 16:10 97.7 102 22 126/93 93 Nasal Cannula 10/10/16 14:56 102 18 99 Nasal Cannula 2.0 10/10/16 14:50 97 18 95 Nasal Cannula 2.0 10/10/16 14:50 28 10/10/16 12:05 97.8 103 18 110/84 98 Nasal Cannula 2.0 10/10/16 09:12 106 20 96 Nasal Cannula 2.0 10/10/16 09:03 28 10/10/16 09:02 102 22 94 Nasal Cannula 2.0 10/10/16 08:42 98.2 106 19 134/76 97 10/10/16 08:36 Nasal Cannula 2.0 10/10/16 08:35 98 Nasal Cannula 2.0 10/10/16 03:58 97.0 100 20 131/84 96 Nasal Cannula 2.0 10/10/16 00:00 97.3 98 20 129/82 Nasal Cannula 2.0 10/09/16 23:10 97.3 Intake and Output 10/09/16 10/10/16 19:00 07:00 Intake Total 311.5 ml 137.5 ml Output Total 320 ml Balance -8.5 ml 137.5 ml Intake Oral 240 ml IV Total 71.5 ml 137.5 ml Output Urine Total 320 ml # Voids 2 2 # Bowel Movements 3 General Appearance: WD/WN HEENT: normocephalic Respiratory/Chest: decreased breath sounds Cardiovascular: normal peripheral pulses, normal rate Abdomen: normal bowel sounds, no organomegaly Current Medications Medications (Trade) Dose Ordered Sig/Myke Route PRN Reason Start Time Stop Time Status Last Admin Dose Admin Albuterol/ Ipratropium (DuoNeb 0.5-3(2.5)mg/3ml) 3 ml Q4H PRN HHN dyspnea 10/09/16 21:00 10/14/16 20:59 10/10/16 21:54 Carisoprodol (Soma) 350 mg DAILYPRN PRN ORAL PAIN UNRELIEVED BY METHADONE 10/09/16 19:30 11/08/16 19:29 10/09/16 22:11 Dextrose (Dextrose 50%) STAT PRN IV Hypoglycemia 10/09/16 19:30 11/08/16 19:29 Heparin Sodium (Porcine) (Heparin 5000 units/ml) 5,000 units EVERY 12 HOURS SUBQ 10/09/16 21:00 11/08/16 20:59 10/10/16 21:03 Lorazepam (Ativan 2mg/ml 1ml) 0.5 mg Q4H PRN IV For Anxiety 10/09/16 19:30 10/16/16 19:29 Methadone HCl (Methadone HCl) 10 mg Q8H PRN ORAL For Pain 10/10/16 11:30 10/17/16 11:29 10/10/16 21:01 Methylprednisolone Sodium Succinate (Solu-MEDROL) 60 mg DAILY IV 10/10/16 09:00 11/09/16 08:59 10/10/16 11:15 Nitroglycerin (Ntg) 0.4 mg Q5M X 3 DOSES PRN SL Prn Chest Pain 10/09/16 19:00 11/08/16 18:59 Ondansetron HCl (Zofran) 4 mg Q6H PRN IVP Nausea & Vomiting 10/09/16 19:30 11/08/16 19:29 Piperacillin Sod/ Tazobactam Sod/ Dextrose (Zosyn/D5W) 110 ml @ 27.5 mls/hr EVERY 8 HOURS IVPB 10/09/16 22:00 10/14/16 21:59 10/10/16 21:01 Polyethylene Glycol (Miralax) 17 gm DAILYPRN PRN ORAL Constipation 10/09/16 19:30 11/08/16 19:29 Promethazine HCl/ Codeine (Phenergan with Codeine) 5 ml Q6H PRN ORAL cough 10/09/16 19:30 11/08/16 19:29 10/09/16 22:59 Temazepam (Restoril) 15 mg HSPRN PRN ORAL Insomnia 10/09/16 19:30 10/16/16 19:29 Theophylline (Dash-Dur) 100 mg EVERY 12 HOURS ORAL 10/09/16 21:00 11/08/16 20:59 10/10/16 21:01 WALT RUSSELL October 10, 2016 22:56
[2016-10-11] VITALS: BP 107/78
[2016-10-11 04:00] VITALS: BP 119/74
[2016-10-11] MEDS: Piperacillin/Tazobactam 3.375 GM in D5W 110 ML IVPB SCH ×2 (05:04→14:00)
[2016-10-11] MEDS: DuoNeb 0.5-3(2.5)mg/3ml neb HHN PRN ×3 (07:48→14:53)
[2016-10-11 08:14] VITALS: BP 144/90
[2016-10-11] MEDS: Theophylline ER 100mg ORAL SCH (08:41)
[2016-10-11] MEDS: Solu-MEDROL 125mg Inj IV SCH (08:41)
[2016-10-11] MEDS: Heparin 5000 units/ml inj SUBQ SCH (08:45)
[2016-10-11 11:41] VITALS: BP 118/66
--- NOTE | 2016-10-13 11:14 | Discharge Summary ---
Discharge Summary Hospital Course Date of Admission October 06, 2016 at 17:50 Date of Discharge October 11, 2016 at 15:35 Admitting Diagnosis asthma exacerbation HPI Sue Potts is a 66 year old female who was admitted on October 06, 2016 at 17:50 for Asthma Exacerbation Hospital Course [id number] Discharge Discharge Disposition Patient was discharged to [facility] Discharge Diagnoses: Jeana Perdomo NP October 13, 2016 11:14
--- NOTE | 2016-10-14 03:39 | Discharge Summary 2 SIG ---
DATE OF ADMISSION: 10/06/2016 DATE OF DISCHARGE: 10/11/2016 BRIEF HOSPITAL COURSE: The patient is a 66-year-old female, who presented to ED complaining of increased difficulty in breathing. The patient had gradual onset of symptoms over the past half hour. She has a history of asthma and has been taking her inhalers. On evaluation at ED, the patient was tachycardic. Chest x-ray showed hyperinflation with no lung infiltrates. No infusion. Due to difficulty breathing, the patient was started on BiPAP and had improvement in symptoms and was placed on nasal cannula. She was admitted to telemetry for further evaluation. She was started on IV steroids and breathing treatments with bronchodilators. Echocardiogram done showed ejection fraction of 65% with findings consistent with moderate pulmonary hypertension and left ventricular diastolic dysfunction. Steroids were tapered. She was also given methadone for dyspnea. She was given Lasix. BNP normalized. She underwent physical therapy and occupational therapy and was eventually discharged home with home health. FINAL DIAGNOSES: 1. Acute respiratory failure secondary to acute chronic obstructive pulmonary disease exacerbation improved. 2. Acute chronic obstructive pulmonary disease exacerbation. 3. Acute on chronic diastolic congestive heart failure. 4. Asthma. Aracelis Chang M.D. I have been assigned to dictate discharge summary on this account and I was not involved in the patient's management. Jeana Perdomo N.P. DR: AN JOB#: [id number] CC:
== END 2016-10-11 15:35 | disposition home health service (06) | DRG 140 ==
LOC: EDBD 16:19 → EMR 16:40 → 2E 17:50 → EDBEDREQ 18:21 → 4W 10-09 18:31
DX: J44.1 Chronic obstructive pulmonary disease with (acute) exacerbation (principal); J96.00 Acute respiratory failure, unspecified whether with hypoxia or hypercapnia; I50.33 Acute on chronic diastolic (congestive) heart failure; I27.2 Other secondary pulmonary hypertension
CPT/HCPCS: 36415; 71010; 80053; 80300; 82550; 82553; 83605; 83880; 84484; 85007; 85025; 85610; 85730; 86710; 87040; 87070; 87205; 93005; 93306; 94640; 94664; 94760; J7620

== ENCOUNTER 2016-12-13 20:05 | Emergency (ER) | payer MEDICARE, OTHER ==
[~2016-12-13] VITALS: Ht 170.2 cm; Wt 106.6 kg
[~2016-12-13 20:05] MED LIST changes: +AMBIEN10 M1 ORAL; +ASPIR 8181 MG ORAL; +CHLORTHALIDONE25 MG ORAL; +COMBIVENT RESPIM4 GM IH; +FUROSEMIDE20 M1 ORAL; +LISINOPRIL20 MG ORAL; +MELOXICAM15 MG PO; +PREDNISONE10 M2 PO; +SOMA350 MG PO; +VENTOLIN HFA18 GM INH
[2016-12-13] MEDS ORDERED: Azithromycin 500 MG in D5W 275 ML IVPB ONE (20:15)
[2016-12-13] MEDS ORDERED: Solu-MEDROL 125mg Inj IVP ONE (20:15)
[2016-12-13] MEDS: Albuterol ud Inhalation HHN SCH ×3 (20:18→20:46)
[2016-12-13] MEDS: Ipratropium 0.02% Inh Soln 2.5ml UD HHN SCH ×3 (20:18→20:46)
--- NOTE | 2016-12-13 20:21 | Emergency Room Report ---
History of Present Illness General Chief Complaint: Dyspnea/Respdistress Source: Patient, EMS Present Illness HPI [id number] BIBEMS with SOB today. Low O2 sat per EMS and house "very hot." EMS noted insp/exp wheezing. Improved with nebs by EMS. Lungs also with rhonchi. Denies previous intubation. On home COPD meds. Was admitted 2 weeks ago to [facility] for "fluid on my lungs." Was DCed with lasix. Didnt take today. Allergies: Coded Allergies: KETOROLAC (Verified Allergy, Unknown, Hives, 10/09/16) Patient History Past Medical History: CHF, COPD Past Surgical History: none Pertinent Family History: none Social History: Denies: alcohol use, drug use, smoking Last Menstrual Period: NONE Now: No Immunizations: UTD Reviewed Nursing Documentation: PMH: Agreed, PSxH: Agreed Nursing Documentation-PMH Hx Cardiac Problems: Yes Hx Hypertension: Yes Hx Pacemaker: No Hx Asthma: Yes - EMPHYSEMA Hx COPD: Yes Hx Diabetes: No Hx Cancer: No Hx Dialysis: No Hx Neurological Problems: No Hx Seizures: No Review of Systems All Other Systems: negative except mentioned in HPI Physical Exam Vital Signs Date Time Temp Pulse Resp B/P Pulse Ox O2 Delivery O2 Flow Rate FiO2 12/13/16 20:03 104 18 146/102 98 Simple Mask 10.0 Sp02 EP Interpretation: reviewed, abnormal General Appearance: normal inspection, well appearing, no apparent distress, alert, GCS 15, non-toxic Head: normocephalic, atraumatic Eyes: bilateral eye EOMI, bilateral eye PERRL ENT: normal ENT inspection, hearing grossly normal, normal voice Neck: normal inspection, full range of motion, supple, no bony tend Respiratory: normal inspection, no wheezing, crackles, rhonchi, speaking full sentences Cardiovascular #1: regular rate, rhythm, no edema Gastrointestinal: normal inspection, normal bowel sounds, non tender, soft, no guarding, no hernia Genitourinary: no CVA tenderness Musculoskeletal: normal inspection, back normal, normal range of motion, Trell' s Sign negative, other - Bilateral 2+ pitting edema Neurologic: normal inspection, alert, oriented x3, responsive, fountain jerk III-XII nml as tested, motor strength/tone normal, speech normal Psychiatric: normal inspection, judgement/insight normal, mood/affect normal Skin: normal inspection, normal color, no rash Medical Decision Making Diagnostic Impression: Primary Impression: COPD exacerbation Additional Impressions: CHF (congestive heart failure) Qualified Codes: I50.9 - Heart failure, unspecified SOB (shortness of breath) ER Course SOB - Likely multifactorial - COPD exac and CHF exacerbation - Nebs, steroids, IV Azithro - Lasix given for acute on chronic CHF exacerbation At 1015pm, Endorsed to Dr Bryant to followup labs and endorse for transfer for tele admission EKG Diagnostic Results Rate: tachycardiac Rhythm: NSR ST Segments: no acute changes ASA given to the pt in ED: No Rhythm Strip Diag. Results EP Interpretation: yes Rate: 95 Rhythm: NSR, no PVC's, no ectopy Chest X-Ray Diagnostic Results Chest X-Ray Diagnostic Results : Chest X-Ray Ordered: Yes # of Views/Limited/Complete: 1 View Indication: Shortness of Breath Interpretation: no pneumothorax, other - Cardiomegaly, ?fluid overload, left sided effusion vs pna Impression: Other - see above Interpreting ER Provider: Electronically signed by DR Delgado Last Vital Signs Date Time Temp Pulse Resp B/P Pulse Ox O2 Delivery O2 Flow Rate FiO2 12/13/16 20:03 104 18 146/102 98 Simple Mask 10.0 Status: improved Disposition: ADMITTED INPATIENT Condition: Serious BEATRICE DELGADO M.D. Dec 13, 2016 20:21
[2016-12-13] MEDS ORDERED: PredniSONE 20mg tab ORAL ONE (22:30)
[2016-12-13] MEDS ORDERED: Furosemide 40mg tab ORAL ONE (22:30)
[2016-12-13 22:46] LABS: BASOPHILS % (AUTO) 0.6 % (0.0-2.0); EOSINOPHILS % (AUTO) 4.1 % (0.0-3.0); LYMPHOCYTES % (AUTO) 21.4 % (20.0-45.0); MEAN CORPUSCULAR HEMOGLOBIN 23.9 PG (27.0-31.0); MEAN CORPUSCULAR HGB CONC 30.3 G/DL (32.0-36.0); MEAN CORPUSCULAR VOLUME 79 FL (80-99); MEAN PLATELET VOLUME 6.7 FL (6.5-10.1); MONOCYTES % (AUTO) 12.1 % (1.0-10.0); NEUTROPHILS % (AUTO) 61.7 % (45.0-75.0); PLATELET COUNT 195 K/UL (150-450); RED BLOOD COUNT 3.79 M/UL (4.20-5.40); RED CELL DISTRIBUTION WIDTH 16.6 % (11.6-14.8); WHITE BLOOD COUNT 8.7 K/UL (4.8-10.8)
[2016-12-13 22:57] LABS: TROPONIN I < 0.30 ng/mL (<=0.30)
[2016-12-13 23:01] LABS: ALANINE AMINOTRANSFERASE 12 U/L (3-33); ANION GAP 7 (5-15); ASPARTATE AMINO TRANSFERASE 18 U/L (5-40); CALCIUM 8.5 mg/dL (8.6-10.2); CARBON DIOXIDE 30 mEQ/L (20-30); CHLORIDE 103 mEQ/L (98-107); CREATININE 0.8 mg/dL (0.5-0.9); GLOMERULAR FILTRATION RATE > 60 mL/min (>60); HEMOLYSIS 0; POTASSIUM 3.2 mEQ/L (3.4-4.9); SODIUM 140 mEQ/L (135-145); TOTAL PROTEIN 6.2 g/dL (6.6-8.7)
[2016-12-13 23:12] LABS: CKMB < 1.5 ng/mL (< 3.8)
[2016-12-14 00:50] VITALS: BP 136/88
--- NOTE | 2016-12-14 11:18 | Diagnostic Imaging Report ---
Indication: SOB Technique: One view of the chest Comparison: 10/09/2016 Findings: Right hilar fullness appears slightly increased from the previous study, and increased from earlier exams of 2014 and 2011. This could be artifactual due to slight differences in rotation. The lungs and pleural space are clear. The heart size is normal. Impression: Right hilar fullness, likely on the basis of pulmonary detail hypertension given stated clinical history of COPD, but equivocally increased from earlier studies. Further evaluation with chest CT is recommended. Dr. Chang notified of this at the time of interpretation No definite acute process
== END 2016-12-14 00:40 | disposition short-term general hospital (02) ==
LOC: EDBD 20:05 → EMR 20:30
DX: J44.1 Chronic obstructive pulmonary disease with (acute) exacerbation (principal); I50.9 Heart failure, unspecified; I11.0 Hypertensive heart disease with heart failure; Z88.8 Allergy status to other drugs, medicaments and biological substances; R00.0 Tachycardia, unspecified
CPT/HCPCS: 36415; 71010; 80053; 82550; 82553; 83880; 84484; 85025; 93005; 94640; 94664; 99285